=== PATIENT | male | born 1945 | race Caucasian/White ===

== ENCOUNTER 2021-12-01 12:24 | Inpatient (IN) | payer OTHER ==
[~2021-12-01] VITALS: Ht 182.9 cm; Wt 70.0 kg
[2021-12-01 14:45] LABS: BASOPHILS % (AUTO) 0.3 % (0-1); EOSINOPHILS % (AUTO) 0.1 % (0-6); HEMATOCRIT 26.3 % (42.0-52.0); LYMPHOCYTES # (AUTO) 9.6 X10'3 (1.1-4.8); LYMPHOCYTES % (AUTO) 81.2 % (21-51); MEAN CORPUSCULAR HEMOGLOBIN 30.7 PG (27.0-31.0); MEAN CORPUSCULAR VOLUME 90.3 FL (78-98); MEAN PLATELET VOLUME 7.5 FL (7.4-10.4); MONOCYTES # (AUTO) 0.1 X10'3 (0-0.9); MONOCYTES % (AUTO) 0.7 % (2-12); NEUTROPHILS # (AUTO) 2.1 X10'3 (1.8-7.7); NEUTROPHILS % (AUTO) 17.7 % (42-75); PLATELET COUNT 97 X10'3 (140-440); RED BLOOD COUNT 2.92 X10'6 (4.70-6.10); RED CELL DISTRIBUTION WIDTH 15.3 % (11.5-14.5); WHITE BLOOD COUNT 11.8 X10'3 (4.5-11.0)
[2021-12-01 15:02] LABS: ALANINE AMINOTRANSFERASE 11 U/L (12-78); ALBUMIN 2.4 G/DL (3.4-5.0); ALBUMIN/GLOBULIN RATIO 0.7 (1.1-1.5); ALKALINE PHOSPHATASE 36 IU/L (46-116); ANION GAP 6 (8-16); ASPARTATE AMINO TRANSFERASE 13 U/L (10-37); BILIRUBIN,TOTAL 0.6 MG/DL (0.1-1.0); BLOOD UREA NITROGEN 16 MG/DL (7-18); BUN/CREATININE RATIO 15.2 (5.4-32.0); CALCIUM 7.3 MG/DL (8.5-10.1); CHLORIDE 103 MMOL/L (99-107); CREATININE 1.05 MG/DL (0.60-1.10); GLUCOSE 100 MG/DL (70-104); POTASSIUM 3.9 MMOL/L (3.5-5.1); SODIUM 135 MMOL/L (135-145); TOTAL CARBON DIOXIDE 26.3 MMOL/L (24-32); TOTAL PROTEIN 5.8 G/DL (6.4-8.2); eGFR 69 ML/MIN
[2021-12-01 15:09] LABS: TOTAL CELLS COUNTED 100
[2021-12-01 15:11] LABS: PLATELET ESTIMATE DECREASED
[2021-12-01 15:12] LABS: ELLIPTOCYTES 1+; POIKILOCYTOSIS 1+; SMUDGE CELLS 1+
[2021-12-01] MEDS ORDERED: REMDESIVIR INJ 200 MG in normal saline 100ml IV soln 100 ML IV ONE (16:35)
[2021-12-01 16:50] LABS: C-REACTIVE PROTEIN 3.36 MG/DL (0.0-0.5)
[2021-12-01 17:21] LABS: D-DIMER 1.99 MG/L FEU (0-0.50)
[2021-12-01] MEDS ORDERED: magnesium 4gm in 100ml NS 100 ML IV PRN (17:40)
[2021-12-01] MEDS ORDERED: potassium CL 10mEq/100ml bag 100 ML IV PRN (17:40)
[2021-12-01] MEDS ORDERED: POTASSIUM BICARB 20meq eff tab 20 MEQ TABLET.EFF PO PRN ×2 (17:40)
[2021-12-01] MEDS ORDERED: magnesium Cl slow-release 64mg tablet PO PRN (17:40)
[2021-12-01] MEDS ORDERED: acetaminophen 325mg tablet PO PRN (17:40)
[2021-12-01] MEDS ORDERED: ondansetron/PF 4mg/2ml inj IV PRN (17:40)
[2021-12-01] MEDS ORDERED: magnesium 2GM in 50ml NS 50 ML IV PRN (17:40)
[2021-12-01] MEDS ORDERED: iohexol 350MG/ML 100ml bottle IV ONE (17:51)
[2021-12-01] MEDS ORDERED: levoFLOXACIN 250mg tablet PO ONE (18:00)
[2021-12-01] MEDS ORDERED: guaiFENesin/DM/phenylephrine syrup 120ml bottle PO PRN (18:00)
--- NOTE | 2021-12-01 18:04 | NUR ---
PT TO CT
[2021-12-01 18:05] LABS: OCCULT BLOOD STOOL POSITIVE (Neg)
[2021-12-01] MEDS: normal saline 1000ml 1,000 ML IV SCH (18:54)
--- NOTE | 2021-12-01 19:45 | NUR ---
I have received report from Mare HAHN and had the opportunity to ask questions and assume patient care.
[2021-12-01] MEDS: K and/or MAG REPLACEMENT MC SCH (20:00)
[2021-12-01] MEDS ORDERED: temazepam 15mg capsule PO PRN (21:00)
[2021-12-01 22:13] VITALS: BP 123/71
[2021-12-01] MEDS: acetaminophen 325mg tablet PO PRN (22:19)
[2021-12-01 23:30] VITALS: BP 102/65
[2021-12-02 02:00] VITALS: BP 106/68
[2021-12-02] MEDS ORDERED: FINA5TAB11 PO (05:57)
--- NOTE | 2021-12-02 06:18 | NUR ---
Problems reprioritized. Patient report given, questions answered & plan of care reviewed with Nitin RN.
--- NOTE | 2021-12-02 06:43 | NUR ---
Patient in room PCU 3008. I have received report from HILARY HAHN and had the opportunity to ask questions and assume patient care.
[2021-12-02 07:00] LABS: BASOPHILS % (AUTO) 0.1 % (0-1); EOSINOPHILS % (AUTO) 0.4 % (0-6); HEMATOCRIT 28.2 % (42.0-52.0); HEMOGLOBIN 9.5 g/dl (14.0-17.9); LYMPHOCYTES # (AUTO) 8.3 X10'3 (1.1-4.8); LYMPHOCYTES % (AUTO) 73.1 % (21-51); MEAN CORPUSCULAR HEMOGLOBIN 30.5 PG (27.0-31.0); MEAN CORPUSCULAR HGB CONC 33.8 g/dL (33.0-36.5); MEAN CORPUSCULAR VOLUME 90.3 FL (78-98); MEAN PLATELET VOLUME 7.8 FL (7.4-10.4); MONOCYTES # (AUTO) 0.1 X10'3 (0-0.9); MONOCYTES % (AUTO) 1.3 % (2-12); NEUTROPHILS # (AUTO) 2.8 X10'3 (1.8-7.7); NEUTROPHILS % (AUTO) 25.1 % (42-75); PLATELET COUNT 97 X10'3 (140-440); RED BLOOD COUNT 3.12 X10'6 (4.70-6.10); RED CELL DISTRIBUTION WIDTH 15.4 % (11.5-14.5); WHITE BLOOD COUNT 11.3 X10'3 (4.5-11.0)
[2021-12-02 07:17] LABS: ALANINE AMINOTRANSFERASE 10 U/L (12-78); ALBUMIN 2.4 G/DL (3.4-5.0); ALBUMIN/GLOBULIN RATIO 0.7 (1.1-1.5); ALKALINE PHOSPHATASE 35 IU/L (46-116); ANION GAP 7 (8-16); ASPARTATE AMINO TRANSFERASE 18 U/L (10-37); BILIRUBIN,TOTAL 0.5 MG/DL (0.1-1.0); BLOOD UREA NITROGEN 15 MG/DL (7-18); BUN/CREATININE RATIO 15.3 (5.4-32.0); CALCIUM 7.5 MG/DL (8.5-10.1); CHLORIDE 106 MMOL/L (99-107); CREATININE 0.98 MG/DL (0.60-1.10); GLUCOSE 87 MG/DL (70-104); POTASSIUM 4.1 MMOL/L (3.5-5.1); SODIUM 136 MMOL/L (135-145); TOTAL PROTEIN 5.7 G/DL (6.4-8.2); eGFR 75 ML/MIN
[2021-12-02] MEDS ORDERED: REMDESIVIR INJ 100 MG in normal saline 100ml IV soln 100 ML IV SCH (08:00)
[2021-12-02] MEDS: K and/or MAG REPLACEMENT MC SCH (08:00)
[2021-12-02] MEDS ORDERED: LEVO750T46 PO (09:25)
[2021-12-02] MEDS ORDERED: DEC4T PO (09:25)
[2021-12-02] MEDS ORDERED: PANT-47 PO (09:26)
[2021-12-02 09:56] VITALS: BP_SYST 105; BP_SYST 111; BP_DIAS 58; BP_DIAS 59
[2021-12-02 09:57] VITALS: BP 105/58
--- NOTE | 2021-12-02 10:02 | NUR ---
PAGER ID: [phone] MESSAGE: SETH PCU [id number] RE: [id number] TOOK VITALS PATIENT WAS EATING BUT TEMP WAS 101.4. DID YOU WANT ME TO HOLD DISCHARGE OR JUST TREAT WITH TYLENOL
[2021-12-02] MEDS: acetaminophen 325mg tablet PO PRN (10:21)
[2021-12-02 10:29] VITALS: BP 92/58
--- NOTE | 2021-12-02 11:49 | NUR ---
PAGER ID: [phone] MESSAGE: SETH PCU [id number] RE: [id number] Aliya GALLAGHER PATIENT TEMP 99.6 AFTER TYLENOL, PRESSURE IS 92/52. DID YOU WANT ME TO CONTINUE WITH DISCHARGE? THANKS SETH.
[2021-12-02 11:50] VITALS: BP 92/52
[2021-12-02] MEDS: normal saline 1000ml 1,000 ML IV SCH (13:45)
--- NOTE | 2021-12-02 14:00 | NUR ---
PATIENT DISCHARGE COMPLETED WITH PATIENT VERBAL UNDERSTANDING WAS EXPRESSED, PATIENT LEFT WITH ALL OF HIS BELONGINGS, PATIENT TOOK MEDS AND LEFT WITH 3 NEW Rx TO BE FILLED. PATIENT WAS TAKEN DOWN TO LOBBY WITH FAMILY AND WAS TRANSPORTED HOME.
[2021-12-03] MEDS ORDERED: REMDESIVIR INJ 100 MG in normal saline 100ml IV soln 100 ML IV SCH (12:00)
== END 2021-12-02 14:40 | disposition home or self-care (01) | DRG 177 ==
LOC: ER 12:25 → ED HOLD 17:43 → EDBEDREQ 18:25 → PCU 3S 19:59
PROVIDERS: ADMIT Internal Medicine; ATTEND Internal Medicine
PROC: XW033E5 Introduction of Remdesivir Anti-infective into Peripheral Vein, Percutaneous Approach, New Technology Group 5 (ICD-10-PCS; principal; 2021-12-01)
PROC: B32T1ZZ Computerized Tomography (CT Scan) of Left Pulmonary Artery using Low Osmolar Contrast (ICD-10-PCS; 2021-12-01)
PROC: B3201ZZ Computerized Tomography (CT Scan) of Thoracic Aorta using Low Osmolar Contrast (ICD-10-PCS; 2021-12-01)
PROC: B32S1ZZ Computerized Tomography (CT Scan) of Right Pulmonary Artery using Low Osmolar Contrast (ICD-10-PCS; 2021-12-01)
DX: U07.1 COVID-19 (principal); J12.82 Pneumonia due to coronavirus disease 2019; D64.9 Anemia, unspecified; D69.6 Thrombocytopenia, unspecified; H91.93 Unspecified hearing loss, bilateral; J06.9 Acute upper respiratory infection, unspecified; K44.9 Diaphragmatic hernia without obstruction or gangrene; N40.0 Benign prostatic hyperplasia without lower urinary tract symptoms; K57.90 Diverticulosis of intestine, part unspecified, without perforation or abscess without bleeding; I95.9 Hypotension, unspecified; R19.5 Other fecal abnormalities; Z89.612 Acquired absence of left leg above knee; Z28.310 Unvaccinated for COVID-19; Z88.0 Allergy status to penicillin
CPT/HCPCS: 36415; 71045; 71275; 80053; 82272; 83605; 83880; 84145; 85007; 85025; 85379; 85651; 86140; 87040; 87081; 87502; 87503; 87635; 99285; C9803; G0378; J3490; J7030; Q9967